=== PATIENT | male | born 1970 | race Caucasian/White ===

== ENCOUNTER 2021-05-05 09:23 | Emergency (ER) | payer OTHER ==
[~2021-05-05] VITALS: Ht 180.3 cm; Wt 136.9 kg
[2021-05-05] MEDS ORDERED: NS IV 1000 ML 1,000 ML IV SCH ×3 (09:45→11:15)
[2021-05-05] MEDS ORDERED: ONDANSETRON 4 MG/2 ML (SDV) Z0FRAN IVP ONE (09:45)
[2021-05-05] MEDS ORDERED: MECLIZINE 25 MG (ANTIVERT) TAB PO ONE (09:45)
[2021-05-05] MEDS ORDERED: DIAZEPAM 5 MG (VALIUM) TABLET PO ONE (09:45)
--- NOTE | 2021-05-05 09:52 | ED General ---
General Chief Complaint: Dizziness/Syncope Stated Complaint: N/V/D Nursing Triage Note: Patient reports he was unloading his truck at a gas station when he became dizzy, fell, then began having nausea and vomiting. He states he has never had this happen before. He reports a history of DM, HTN, and high cholesterol. He denies any pain. History of Present Illness Date Seen by Provider: May 05, 2021 Time Seen by Provider: 09:49 Initial Comments Patient presenting to the emergency department for evaluation of dizziness with nausea and vomiting started shortly prior to arrival. He is from [place] and is the dairy truck driver for [employer] when he said at his for stop he ate breakfast and then on his second stop he was outside and started feeling a spinning sensation and then felt as if he could pass out and fell towards the ground and skinned his knees and he started having emesis. He says that he does not have any spinning sensation at this time but he still feels nauseated. He denies any pain fevers chills shortness of breath unilateral weakness numbness tingling confusion or vision changes. Patient says that he has a history of hypertension diabetes high cholesterol but has never had symptoms similar to this in the past. He is in no acute distress with normal vital signs. Allergies and Home Medications Allergies Coded Allergies: No Known Drug Allergies (Unverified , 05/05/21) Home Medications Meclizine HCl 25 Mg Tablet, 25 MG PO Q6H PRN for VERTIGO Prescribed by: ROMULO BLACKWELL on 05/05/21 1306 Last Action: New Order Ondansetron 4 Mg Tab.rapdis, 4 MG PO Q6H PRN for NAUSEA/VOMITING-1ST LINE Prescribed by: ROMULO BLACKWELL on 05/05/21 1306 Last Action: New Order Patient Home Medication List Home Medication List Reviewed: Yes Review of Systems Review of Systems Constitutional: dizziness EENTM: no symptoms reported Respiratory: no symptoms reported Cardiovascular: no symptoms reported Gastrointestinal: nausea, vomiting Genitourinary: no symptoms reported Musculoskeletal: no symptoms reported Skin: no symptoms reported Psychiatric/Neurological: No Symptoms Reported All Other Systems Reviewed Negative Unless Noted: Yes Physical Exam Vital Signs Vital Signs - First Documented 05/05/21 09:23 Temp 36.4 Pulse 93 Resp 20 B/P (MAP) 140/82 (101) Pulse Ox 96 O2 Delivery Room Air Capillary Refill : Less Than 3 Seconds Height, Weight, BMI Height: '" Weight: lbs. oz. kg; 42.00 BMI Method: General Appearance: No Apparent Distress, WD/WN HEENT: PERRL/EOMI Neck: Supple Respiratory: Lungs Clear, No Respiratory Distress Cardiovascular: Regular Rate, Rhythm Gastrointestinal: Non Tender, Soft Back: Normal Inspection Neurologic/Psychiatric: Alert, Oriented x3, No Motor/Sensory Deficits, Other (N ormal [id number] and [id number]) Skin: Warm/Dry Progress/Results/Core Measures Suspected Sepsis SIRS Temperature: Pulse: 93 Respiratory Rate: 20 Laboratory Tests 05/05/21 09:25: White Blood Count 9.1 Blood Pressure 140 /82 Mean: 101 Laboratory Tests 05/05/21 09:25: Creatinine 0.78, Platelet Count 216, Total Bilirubin 0.5 Results/Orders Lab Results Laboratory Tests Test 05/05/21 09:25 Range/Units White Blood Count 9.1 4.3-11.0 10^3/uL Red Blood Count 5.26 4.35-5.85 10^6/uL Hemoglobin 15.1 13.3-17.7 G/DL Hematocrit 44 40-54 % Mean Corpuscular Volume 84 80-99 FL Mean Corpuscular Hemoglobin 29 25-34 PG Mean Corpuscular Hemoglobin Concent 34 32-36 G/DL Red Cell Distribution Width 12.8 10.0-14.5 % Platelet Count 216 130-400 10^3/uL Mean Platelet Volume 9.2 7.4-10.4 FL Immature Granulocyte % (Auto) 1 % Neutrophils (%) (Auto) 67 42-75 % Lymphocytes (%) (Auto) 24 12-44 % Monocytes (%) (Auto) 6 0-12 % Eosinophils (%) (Auto) 1 0-10 % Basophils (%) (Auto) 1 0-10 % Neutrophils # (Auto) 6.1 1.8-7.8 X 10^3 Lymphocytes # (Auto) 2.2 1.0-4.0 X 10^3 Monocytes # (Auto) 0.5 0.0-1.0 X 10^3 Eosinophils # (Auto) 0.1 0.0-0.3 10^3/uL Basophils # (Auto) 0.1 0.0-0.1 10^3/uL Immature Granulocyte # (Auto) 0.1 0.0-0.1 10^3/uL Sodium Level 140 135-145 MMOL/L Potassium Level 3.7 3.6-5.0 MMOL/L Chloride Level 103 98-107 MMOL/L Carbon Dioxide Level 19 L 21-32 MMOL/L Anion Gap 18 H 5-14 MMOL/L Blood Urea Nitrogen 15 7-18 MG/DL Creatinine 0.78 0.60-1.30 MG/DL Estimat Glomerular Filtration Rate 105 BUN/Creatinine Ratio 19 Glucose Level 222 H 70-105 MG/DL Calcium Level 9.6 8.5-10.1 MG/DL Corrected Calcium 9.2 8.5-10.1 MG/DL Total Bilirubin 0.5 0.1-1.0 MG/DL Aspartate Amino Transf (AST/SGOT) 39 H 5-34 U/L Alanine Aminotransferase (ALT/SGPT) 53 0-55 U/L Alkaline Phosphatase 79 40-136 U/L Troponin I < 0.30 <0.30 NG/ML Total Protein 7.5 6.4-8.2 GM/DL Albumin 4.5 3.2-4.5 GM/DL Lipase 47 8-78 U/L My Orders Orders - ROMULO BLACKWELL DO Iv/Invasive Line Insertion .IV start (05/05/21 09:33) Cbc With Automated Diff (05/05/21 09:33) Comprehensive Metabolic Panel (05/05/21 09:33) Troponin I Fs (05/05/21 09:33) Lipase (05/05/21 09:33) Ns Iv 1000 Ml (Sodium Chloride 0.9%) (05/05/21 09:45) Ondansetron Injection (Zofran Injectio (05/05/21 09:45) Diazepam Tablet (Valium Tablet) (05/05/21 09:45) Meclizine Tablet (Antivert Tablet) (05/05/21 09:45) Ct Head Wo (05/05/21 ) Ns Iv 1000 Ml (Sodium Chloride 0.9%) (05/05/21 10:45) Insulin (Regular) Human (Novolin R (Per (05/05/21 10:45) Ns Iv 1000 Ml (Sodium Chloride 0.9%) (05/05/21 11:15) Medications Given in ED Current Medications Medications Dose Ordered Sig/Natalia Route Start Time Stop Time Status Last Admin Dose Admin Diazepam 5 mg ONCE ONCE PO 05/05/21 09:45 05/05/21 09:46 DC 05/05/21 09:40 5 MG Insulin Human Regular 4 unit ONCE ONCE IV 05/05/21 10:45 05/05/21 10:46 DC 05/05/21 10:49 4 UNIT Meclizine HCl 25 mg ONCE ONCE PO 05/05/21 09:45 05/05/21 09:46 DC 05/05/21 09:40 25 MG Ondansetron HCl 8 mg ONCE ONCE IVP 05/05/21 09:45 05/05/21 09:46 DC 05/05/21 09:42 8 MG Vital Signs/I&O 05/05/21 09:23 Temp 36.4 Pulse 93 Resp 20 B/P (MAP) 140/82 (101) Pulse Ox 96 O2 Delivery Room Air Capillary Refill : Less Than 3 Seconds Blood Pressure Mean: 101 Progress Note : Progress Note Patient has symptoms that are most likely consistent with a peripheral vertigo episode. He has a normal neurologic exam at this time. He does have risk factors for possible central cause. I will need to check labs imaging treat his symptoms and recheck neurologic exam. Patient does have slight acidosis with hyperglycemia and may have a mild DKA but he was given 2 L of fluid in addition to 4 units of insulin IV. His CT is ne gative and his repeat neurologic exam is normal such with mild like to have him ambulate and he did initially ambulate with an unsteady gait but was able to walk unassisted. I told him I cannot completely rule out a cerebellar stroke and told him that he if he is not able to ambulate at his baseline I recommended he get transferred to a facility where he had an MRI and further stroke work-up. Patient refused stating that he thinks he is just groggy from the medicines so I gave him an additional 30 minutes and then he was able to ambulate with a steady gait unassisted and he says he has back to his baseline. With his present I again told him I cannot completely exclude stroke but if he is back to his baseline that I will discharge him with supportive medications including Zofran and meclizine but he will need to follow with his primary care provider in 1 week for recheck and if he has worsening dizziness nausea vomiting or other concerns he should go to the nearest emergency department for further stroke work-up. Patient and aware and agreeable with plan for discharge and verbalized understanding of the above instructions. Departure Impression Primary Impression: Vertigo Additional Impressions: Hyperglycemia Nausea & vomiting Blood CO2 decreased Disposition: 01 HOME, SELF-CARE Condition: Stable Departure-Patient Inst. Patient Instructions: Vertigo (a Type of Dizziness) (DC) Add. Discharge Instructions: Drink plenty of water. See your doctor about your elevated blood sugars and your vertigo. Come back to the ED with any concerns. Thank you! All discharge instructions reviewed with patient and/or family. Voiced understanding. Scripts Ondansetron (Ondansetron Odt) 4 Mg Tab.rapdis 4 MG PO Q6H PRN for NAUSEA/VOMITING-1ST LINE, #14 TAB Prov: ROMULO BLACKWELL DO 05/05/21 Meclizine HCl (Meclizine HCl) 25 Mg Tablet 25 MG PO Q6H PRN for VERTIGO, #14 TAB Prov: ROMULO BLACKWELL DO 05/05/21 Work/School Note: Work Release Form Date Seen in the Emergency Department: May 05, 2021 Return to Work: May 07, 2021 Restrictions: No Restrictions ROMULO BLACKWELL DO May 05, 2021 09:52
[2021-05-05 10:13] LABS: BASOPHILS # (AUTO) 0.1 10^3/uL (0.0-0.1); BASOPHILS % (AUTO) 1 % (0-10); EOSINOPHILS # (AUTO) 0.1 10^3/uL (0.0-0.3); EOSINOPHILS % (AUTO) 1 % (0-10); HEMATOCRIT 44 % (40-54); HEMOGLOBIN 15.1 G/DL (13.3-17.7); LYMPHOCYTES # (AUTO) 2.2 X 10^3 (1.0-4.0); LYMPHOCYTES % (AUTO) 24 % (12-44); MEAN CORPUSCULAR HEMOGLOBIN 29 PG (25-34); MEAN CORPUSCULAR HGB CONC 34 G/DL (32-36); MEAN CORPUSCULAR VOLUME 84 FL (80-99); MEAN PLATELET VOLUME 9.2 FL (7.4-10.4); MONOCYTES # (AUTO) 0.5 X 10^3 (0.0-1.0); MONOCYTES % (AUTO) 6 % (0-12); NEUTROPHILS # (AUTO) 6.1 X 10^3 (1.8-7.8); NEUTROPHILS % (AUTO) 67 % (42-75); PLATELET COUNT 216 10^3/uL (130-400); WHITE BLOOD COUNT 9.1 10^3/uL (4.3-11.0)
[2021-05-05 10:31] LABS: CHLORIDE 103 MMOL/L (98-107); POTASSIUM 3.7 MMOL/L (3.6-5.0); SODIUM 140 MMOL/L (135-145)
[2021-05-05 10:32] LABS: ALANINE AMINOTRANSFERASE 53 U/L (0-55); ALBUMIN 4.5 GM/DL (3.2-4.5); ALKALINE PHOSPHATASE 79 U/L (40-136); BILIRUBIN,TOTAL 0.5 MG/DL (0.1-1.0); BUN/CREATININE RATIO 19; CALCIUM 9.6 MG/DL (8.5-10.1); CARBON DIOXIDE 19 MMOL/L (21-32); CREATININE SERUM 0.78 MG/DL (0.60-1.30); GFR ESTIMATED 105; GLUCOSE 222 MG/DL (70-105); LIPASE 47 U/L (8-78); TOTAL PROTEIN 7.5 GM/DL (6.4-8.2)
--- NOTE | 2021-05-05 10:44 | Diagnostic Imaging Report ---
Clinical indication: Patient with vertigo and vomiting. Exam: Axial CT scan of the brain without IV contrast with coronal and sagittal reformatted images. Auto Exposure Controls were utilized during the CT exam to meet ALARA standards for radiation dose reduction. Comparison: None. Findings: There is no evidence of acute cerebral infarct, intracranial hemorrhage, or gross mass effect. The brain parenchymal volume appears appropriate for patient's age. There is normal cabrera-white matter distinction. There is no significant midline shift or herniation. There is no evidence of hydrocephalus. The basal cisterns are unremarkable. The skull, extracranial soft tissue, and orbits are unremarkable. The paranasal sinuses are unremarkable. Temporal bones show no significant abnormality. Impression: Unremarkable CT scan of the brain for age. Dictated by: Dictated on workstation # [id number]
[2021-05-05] MEDS ORDERED: inSUlin (REGULAR) HUMAN 1 UNIT/0.01 ML (CHARGE PER UNIT) IV ONE (10:45)
[2021-05-05] MEDS ORDERED: MECL-149 PO (13:05)
[2021-05-05] MEDS ORDERED: ONDA4TAB11 PO (13:05)
[2021-05-05 13:11] VITALS: BP 139/84
== END 2021-05-05 13:14 | disposition home or self-care (01) ==
LOC: ER FS 09:26
DX: R42 Dizziness and giddiness (principal); R73.9 Hyperglycemia, unspecified; R11.2 Nausea with vomiting, unspecified
CPT/HCPCS: 36415; 70450; 80053; 83690; 84484; 85025; 93005; 96374; 96375